=== PATIENT | male | born 1975 | race Caucasian/White ===

== ENCOUNTER 2018-12-19 18:25 | Inpatient (IN) | payer MEDICAID ==
[~2018-12-19] VITALS: Ht 162.6 cm; Wt 100.2 kg
[2018-12-19] MEDS ORDERED: SODIUM CHLORIDE 0.9% 1,000 ML IV ONE (19:20)
[2018-12-19] MEDS ORDERED: LEVETIRACETAM 1000MG/100ML 100 ML IV ONE (19:30)
[2018-12-19 19:43] LABS: BASOPHILS % 0.3 % (0.0-2.0); EOSINOPHILS % 1.6 % (0.0-5.0); HEMATOCRIT. 30.6 % (42.0-52.0); HEMOGLOBIN. 10.8 g/dL (14.0-18.0); LYMPHOCYTES % 52.3 % (20.0-50.0); MEAN CORPUSCULAR HEMOGLOBIN 36.4 pg (28.0-32.0); MEAN CORPUSCULAR VOLUME 103.4 fL (80.0-94.0); MEAN PLATELET VOLUME 9.1 fl (7.4-10.4); MONOCYTES % 5.9 % (2.0-8.0); NEUTROPHILS % 39.9 % (40.0-76.0); RED BLOOD CELL COUNT 2.96 mill/uL (4.7-6.1); RED CELL DISTRIBUTION WIDTH 15.8 % (11.6-14.6)
[2018-12-19 19:47] LABS: CHLORIDE 115 mEq/L (98-107)
[2018-12-19 19:49] LABS: PLATELET 17 x1000/uL (130-400)
[2018-12-19 20:00] LABS: ETHANOL BLOOD 378 mg/dL
[2018-12-19 20:08] LABS: CLARITY URINE CLEAR (CLEAR); COLOR URINE DARK YELLOW (YELLOW); KETONES URINE NEGATIVE (NEGATIVE); LEUKOCYTE ESTERASE URINE NEGATIVE (NEGATIVE); NITRITE URINE NEGATIVE (NEGATIVE); OCCULT BLOOD URINE 3+ (NEGATIVE); PH URINE 5.5 (4.5-8.0); PROTEIN URINE 1+ (NEGATIVE); SPECIFIC GRAVITY URINE 1.011 (1.005-1.030)
[2018-12-19 20:23] LABS: *BARBITURATES SCREEN URINE NEGATIVE (NEGATIVE)
[2018-12-19 20:24] LABS: *AMPHETAMINES SCREEN URINE NEGATIVE (NEGATIVE); *BENZODIAZEPINES SCREEN URINE NEGATIVE (NEGATIVE); *COCAINE SCREEN URINE NEGATIVE (NEGATIVE); METHADONE URINE SCREEN NEGATIVE (NEGATIVE); OPIATES URINE SCREEN NEGATIVE (NEGATIVE); PHENCYCLIDINE URINE SCREEN NEGATIVE (NEGATIVE)
[2018-12-19 20:25] LABS: CANNABINOID URINE SCREEN NEGATIVE (NEGATIVE)
[2018-12-19] MEDS ORDERED: DIPHENHYDRAMINE 50MG/ML VIAL IV PRN (23:30)
[2018-12-19] MEDS ORDERED: MAGNESIUM/ALUMINUM HYDROXIDE/SIMETHICONE 30ML UDC PO PRN (23:30)
[2018-12-19] MEDS ORDERED: LORAZEPAM 0.5MG TABLET PO PRN (23:30)
[2018-12-19] MEDS ORDERED: ONDANSETRON HCL 4MG/2ML INJ IV PRN (23:30)
[2018-12-19] MEDS ORDERED: IPRATROPIUM/ALBUTEROL 0.5-3(2.5)MG/3ML NEB INH PRN (23:30)
[2018-12-19] MEDS ORDERED: ACETAMINOPHEN 650MG SUPP PR PRN (23:30)
[2018-12-19] MEDS ORDERED: LORAZEPAM 2MG/ML CPJ IV PRN (23:30)
[2018-12-19] MEDS ORDERED: NA PHOS,M-B/NA PHOS,DI-BA ENEMA 118ML PR PRN (23:30)
[2018-12-19] MEDS ORDERED: GUAIFENESIN 200MG/10ML SUGAR FREE UDC PO PRN (23:30)
[2018-12-19] MEDS ORDERED: DOCUSATE SODIUM 100MG CAPSULE PO PRN (23:30)
[2018-12-20] VITALS (8 sets, daily range): BP systolic 100–161; BP diastolic 53–92
[2018-12-20] MEDS: FOLIC ACID 1MG TABLET PO SCH ×2 (03:02→09:45)
[2018-12-20] MEDS: DEXT 5%/0.45% NACL 1000ML 1,000 ML IV SCH ×3 (03:02→21:51)
[2018-12-20] MEDS: THIAMINE HCL 100MG TABLET PO SCH ×2 (03:02→09:45)
[2018-12-20 05:42] LABS: CHLORIDE 116 mEq/L (98-107)
[2018-12-20 06:02] LABS: LDL CHOLESTEROL 112 mg/dL (5-100)
[2018-12-20 06:03] LABS: HDL CHOLESTEROL 28 mg/dL (40-59); HEMATOCRIT. 27.3 % (42.0-52.0); HEMOGLOBIN. 9.5 g/dL (14.0-18.0); MEAN CORPUSCULAR HEMOGLOBIN 36.1 pg (28.0-32.0); MEAN CORPUSCULAR VOLUME 104.2 fL (80.0-94.0); MEAN PLATELET VOLUME 9.9 fl (7.4-10.4); RED BLOOD CELL COUNT 2.62 mill/uL (4.7-6.1); RED CELL DISTRIBUTION WIDTH 15.8 % (11.6-14.6)
[2018-12-20] MEDS ORDERED: PNEUMOCOCCAL 23-VAL P-SAC VAC 0.5 ML IM ONE (06:15)
[2018-12-20] MEDS: CHLORDIAZEPOXIDE 25MG CAPSULE PO SCH ×3 (06:35→21:44)
[2018-12-20] MEDS: SODIUM CHLORIDE 0.9% INJ 3ML FLUSH IVF SCH ×3 (06:36→21:44)
[2018-12-20 07:45] LABS: PLATELET 11 x1000/uL (130-400); PLATELET ESTIMATE MARKEDLY DECREASED
[2018-12-21] VITALS (12 sets, daily range): BP systolic 140–169; BP diastolic 55–85
[2018-12-21] MEDS: ACETAMINOPHEN 650MG/20.3ML UDC GT PRN ×2 (03:12→12:58)
[2018-12-21] MEDS: SODIUM CHLORIDE 0.9% INJ 3ML FLUSH IVF SCH ×3 (06:26→22:34)
[2018-12-21] MEDS: CHLORDIAZEPOXIDE 25MG CAPSULE PO SCH ×3 (06:27→22:34)
[2018-12-21] MEDS: AMLODIPINE 10MG TABLET PO SCH (06:41)
[2018-12-21] MEDS: FOLIC ACID 1MG TABLET PO SCH (08:45)
[2018-12-21] MEDS: THIAMINE HCL 100MG TABLET PO SCH (08:45)
[2018-12-21 11:42] LABS: HEMATOCRIT 28.5 % (42.0-52.0); HEMOGLOBIN 10.2 g/dL (14.0-18.0)
[2018-12-21 11:49] LABS: INR 1.4; PROTHROMBIN TIME 14.7 sec (9.6-11.0)
[2018-12-21] MEDS: DEXT 5%/0.45% NACL 1000ML 1,000 ML IV SCH (14:19)
[2018-12-21] MEDS: DEXTROSE 5% WATER 1,000 ML IV SCH (15:26)
[2018-12-21 19:20] LABS: HEMATOCRIT. 26.8 % (42.0-52.0); HEMOGLOBIN. 9.4 g/dL (14.0-18.0); MEAN CORPUSCULAR HEMOGLOBIN 36.1 pg (28.0-32.0); MEAN CORPUSCULAR VOLUME 102.7 fL (80.0-94.0); MEAN PLATELET VOLUME 9.5 fl (7.4-10.4); RED BLOOD CELL COUNT 2.61 mill/uL (4.7-6.1)
[2018-12-21] MEDS ORDERED: ACETAMINOPHEN 325MG TABLET PO NR (20:00)
[2018-12-21] MEDS ORDERED: DIPHENHYDRAMINE 25MG CAPSULE PO NR (20:00)
[2018-12-21 20:03] LABS: CHLORIDE 107 mEq/L (98-107)
[2018-12-21 20:18] LABS: PLATELET 8 x1000/uL (130-400)
[2018-12-21 21:30] LABS: PLATELET ESTIMATE MARKEDLY DECREASED
[2018-12-22] VITALS (11 sets, daily range): BP systolic 123–155; BP diastolic 55–85
[2018-12-22] MEDS ORDERED: CEFTRIAXONE 1 G PREMIX 50 ML IV SCH
[2018-12-22] MEDS: CHLORDIAZEPOXIDE 25MG CAPSULE PO SCH ×2 (05:06→13:33)
[2018-12-22] MEDS: SODIUM CHLORIDE 0.9% INJ 3ML FLUSH IVF SCH ×2 (05:06→13:33)
[2018-12-22] MEDS: DEXTROSE 5% WATER 1,000 ML IV SCH (05:07)
[2018-12-22] MEDS ORDERED: ACETAMINOPHEN 650MG/20.3ML UDC PO PRN (05:30)
[2018-12-22 08:08] LABS: HEMOGLOBIN. 9.7 g/dL (14.0-18.0); MEAN CORPUSCULAR HEMOGLOBIN 36.8 pg (28.0-32.0); MEAN CORPUSCULAR VOLUME 102.7 fL (80.0-94.0); MEAN PLATELET VOLUME 9.7 fl (7.4-10.4); RED BLOOD CELL COUNT 2.62 mill/uL (4.7-6.1); RED CELL DISTRIBUTION WIDTH 15.1 % (11.6-14.6)
[2018-12-22 09:33] LABS: PLATELET 10 x1000/uL (130-400); PLATELET ESTIMATE MARKEDLY DECREASED
[2018-12-22] MEDS: AMLODIPINE 10MG TABLET PO SCH (10:16)
[2018-12-22] MEDS: THIAMINE HCL 100MG TABLET PO SCH (10:16)
[2018-12-22] MEDS: FOLIC ACID 1MG TABLET PO SCH (10:17)
== END 2018-12-22 16:20 | disposition left against medical advice (07) | DRG 53 ==
LOC: ER 18:25 → EDBEDREQTM 22:48 → EDBEDREQ 22:48 → ENRESERV 23:01 → 5WST 12-20 00:11
PROVIDERS: ADMIT Family Medicine; ATTEND Family Medicine
PROC: 30233R1 Transfusion of Nonautologous Platelets into Peripheral Vein, Percutaneous Approach (ICD-10-PCS; principal; 2018-12-21)
DX: G40.89 Other seizures (principal); N17.0 Acute kidney failure with tubular necrosis; E43 Unspecified severe protein-calorie malnutrition; D69.6 Thrombocytopenia, unspecified; E11.51 Type 2 diabetes mellitus with diabetic peripheral angiopathy without gangrene; K76.6 Portal hypertension; F10.239 Alcohol dependence with withdrawal, unspecified; K74.60 Unspecified cirrhosis of liver; E86.0 Dehydration; Z53.21 Procedure and treatment not carried out due to patient leaving prior to being seen by health care provider; E78.5 Hyperlipidemia, unspecified; K76.0 Fatty (change of) liver, not elsewhere classified; D64.9 Anemia, unspecified; D72.819 Decreased white blood cell count, unspecified; Z68.37 Body mass index [BMI] 37.0-37.9, adult
CPT/HCPCS: 36415; 71045; 76705; 80061; 80305; 80320; 82962; 85014; 85018; 85049; 85384; 86850; 86900; 90732; J0696; J1953; J7030; J7070; P9034; Q0163; G0480